=== PATIENT | female | born 1945 | race Caucasian/White ===

== ENCOUNTER 2020-01-04 00:24 | Outpatient (CLI) | payer MEDICARE, OTHER, SELFPAY ==
[2020-01-04 15:54] LABS: SARS-CoV-2 RNA PCR Negative
== END 2020-01-04 00:25 | disposition home or self-care (01) ==
PROVIDERS: PCP Family Medicine; Visit Provider Internal Medicine Gastroenterology
DX: Z01.812 Encounter for preprocedural laboratory examination (principal); Z20.828 Contact with and (suspected) exposure to other viral communicable diseases
CPT/HCPCS: 87635; C9803; U0003

== ENCOUNTER 2020-01-07 03:29 | Day surgery (SDC) | payer MEDICARE, OTHER, SELFPAY ==
[2020-01-04 11:53] VITALS: BMI 27.8
[2020-01-07 07:00] VITALS: BP 170/71; PULSE 72; RESP 18; TEMP 36.6; O2SAT 72
--- NOTE | 2020-01-07 07:21 | PM.HPGS ---
History of Present Illness History of Present Illness Consent: Risks, benefits, and alternatives have been discussed and questions answered. Patient agrees to proceed with procedure. Chief complaint: Colitis Narrative: Margarita Pagan is a 74 year old W female referred for colonoscopy secondary history of chronic diarrhea. Patient has normal bowel pattern is 1-2 bowel movements per day. This began with there were [facility] and [place] over 2 months ago. She developed diarrhea with multiple liquid stools without significant abdominal pain no blood. When she returned to the area she was seen by primary care physician stool cultures were obtained which were all negative. She did take some Imodium and said this stop her diarrhea but caused her have abdominal pain and cramping. There is no family history of inflammatory bowel disease colon polyps or colon cancer. However sister had colon obstruction but she did not know the cause of this. [facility] Surgical History Surgical History (Updated 01/07/20 @ 07:23 by Alhaji Luu MD) History of bilateral tubal ligation S/P right inguinal herniorrhaphy Status post tonsillectomy and adenoidectomy Family History Family History Other Cerebrovascular accident Family history of coronary artery disease Hypertension Social History Social History Smoking status: Never smoker Alcohol intake: never Gender identity (if verbalized by the patient): Female Meds Home Medications and Allergies Home Medications Medication Instructions Recorded Confirmed Type potassium chloride 20 mEq 20 meq PO DAILY #90 tablet 08/08/19 01/04/20 Rx tablet,extended release nebivolol 20 mg tablet 20 mg PO DAILY #90 tablet 08/13/19 01/04/20 Rx rosuvastatin 20 mg tablet 20 mg PO DAILY #90 tablet 08/13/19 01/04/20 Rx buspirone 5 mg tablet 5 mg PO BID #180 tablet 11/28/19 01/04/20 Rx lisinopril 20 mg tablet 20 mg PO DAILY #90 tablet 12/12/19 01/04/20 Rx alprazolam 0.25 mg tablet 0.25 mg PO BID PRN #30 tablet 01/02/20 01/04/20 Rx Lacto.acidophilus-Bif.animalis 1 cap PO DAILY 01/04/20 01/04/20 History [Daily Probiotic] aspirin [Adult Low Dose Aspirin] 81 mg PO EVERY OTHER DAY 01/04/20 01/04/20 History calcium carbonate-vitamin D3 1 cap PO DAILY 01/04/20 01/04/20 History [Calcium 600 + D(3)] [id number] 1 cap PO DAILY 01/04/20 01/04/20 History [Daily Multivitamin] Allergies Allergy/AdvReac Type Severity Reaction Status Date / Time sulfanilamide Allergy Mild Rash Verified 01/07/20 07:12 Vital Signs Vital Signs - 24 hr 01/07/20 07:00 Temperature 36.6 C Pulse Rate 72 Respiratory Rate 18 Blood Pressure 170/71 H Pulse Oximetry 72 L Exam Const: Orientation/consciousness: patient oriented x3 Resp: Auscultation: clear to auscultation bilaterally Cardio: Rate: regular rate Rhythm: regular rhythm Heart sounds: no murmurs GI: GI Palp: Yes Soft to palpation, No Tenderness to palpation present (GI), Yes No hepatosplenomegaly present and No Palpable mass present Auscultation: normal bowel sounds Neuro: General: patient oriented x3 and no focal motor deficits Extrem: General: no pedal edema Assessment and Plan Additional Plan colonoscopy for evaluation of chronic diarrhea
[2020-01-07] MEDS: LACTATED RINGERS 1,000 ML 150 ML IV CONT (07:29)
--- NOTE | 2020-01-07 08:07 | WPDANESEPPF ---
Anes - Initial Pre Proc Eval Procedure: Operation Date: 01/07/20 08:30 Proposed Procedures p Colonoscopy - Alhaji Luu MD Date/Time: 01/07/20 08:07 Surgeon: Alhaji Luu MD Pre Op Diagnosis: Colitis Patient Data Age: 74 Gender: F Height: 5 ft 1 in Weight: 64 kg Last Vital Signs Temp 97.8 F 01/07/20 07:00 Pulse 72 01/07/20 07:00 Resp 18 01/07/20 07:00 BP 170/71 H 01/07/20 07:00 Pulse Ox 72 L 01/07/20 07:00 Allergies Allergy/AdvReac Type Severity Reaction Status Date / Time sulfanilamide Allergy Mild Rash Verified 01/07/20 07:12 Home Medications Medication Instructions Recorded Confirmed Type potassium chloride 20 mEq 20 meq PO DAILY #90 tablet 08/08/19 01/04/20 Rx tablet,extended release nebivolol 20 mg tablet 20 mg PO DAILY #90 tablet 08/13/19 01/04/20 Rx rosuvastatin 20 mg tablet 20 mg PO DAILY #90 tablet 08/13/19 01/04/20 Rx buspirone 5 mg tablet 5 mg PO BID #180 tablet 11/28/19 01/04/20 Rx lisinopril 20 mg tablet 20 mg PO DAILY #90 tablet 12/12/19 01/04/20 Rx alprazolam 0.25 mg tablet 0.25 mg PO BID PRN #30 tablet 01/02/20 01/04/20 Rx Lacto.acidophilus-Bif.animalis 1 cap PO DAILY 01/04/20 01/04/20 History [Daily Probiotic] aspirin [Adult Low Dose Aspirin] 81 mg PO EVERY OTHER DAY 01/04/20 01/04/20 History calcium carbonate-vitamin D3 1 cap PO DAILY 01/04/20 01/04/20 History [Calcium 600 + D(3)] [id number] 1 cap PO DAILY 01/04/20 01/04/20 History [Daily Multivitamin] Patient hx anesthesia problems: none Family hx anesthesia problems: none PMFSH Past Medical History Medical History (Updated 01/07/20 @ 08:07 by Jeramy De Dios MD) Anxiety Essential (primary) hypertension Migraine Mixed hyperlipidemia Surgical History Surgical History (Updated 01/07/20 @ 07:23 by Alhaji Luu MD) History of bilateral tubal ligation S/P right inguinal herniorrhaphy Status post tonsillectomy and adenoidectomy Family History Family History Other Cerebrovascular accident Family history of coronary artery disease Hypertension Social History Social History Smoking status: Never smoker Alcohol intake: never Gender identity (if verbalized by the patient): Female Anes - Eval Final PreProcedure Day of Procedure 01/07/20 08:07 Patient weight: normal Heart: regular rate and rhythm Lungs: clear to auscultation Airway: Mallampati scale class II Neurological: alert and oriented Last oral intake: >/= 8 hours ASA classification: III Emergent: no Anesthetic plan: proceed Anesthesia type and monitoring: general GIVS and standard monitoring Informed Consent: The patient's anesthetic plan and its attendant risks and benefits were discussed with the patient/family/POA. Questions were solicited and answers provided to the satisfaction of the patient/family/POA.
--- NOTE | 2020-01-07 08:40 | SUR.OPER ---
[id number] ATTEMPTED TO CALL SPOUSE VIA PHONE WITH UPDATE. PHONE NOT ANSWERED. JUAREZ ROME
[2020-01-07 09:06] VITALS: BP 132/106; PULSE 61; RESP 18; O2SAT 99
[2020-01-07 09:16] VITALS: BP 157/78; PULSE 60; RESP 17; O2SAT 99
[2020-01-07 09:26] VITALS: BP 119/88; PULSE 59; RESP 19; O2SAT 100
== END 2020-01-07 09:37 | disposition home or self-care (01) ==
PROVIDERS: PCP Family Medicine; Visit Provider Internal Medicine Gastroenterology
PROC: 0DJD8ZZ Inspection of Lower Intestinal Tract, Via Natural or Artificial Opening Endoscopic (ICD-10-PCS; CPT 45378; principal; 2020-01-07 08:30)
DX: K52.831 Collagenous colitis (principal); K52.832 Lymphocytic colitis; D12.5 Benign neoplasm of sigmoid colon; K57.30 Diverticulosis of large intestine without perforation or abscess without bleeding; I10 Essential (primary) hypertension; E78.2 Mixed hyperlipidemia; F41.9 Anxiety disorder, unspecified; Z79.82 Long term (current) use of aspirin
CPT/HCPCS: 45380; 45385; 88305; J2704; J7120